=== PATIENT | female | born 1990 | race American Indian/Alaskan Native ===

== ENCOUNTER 2017-09-01 22:05 | Emergency (ER) | payer MEDICAID ==
[2017-09-01] MEDS ORDERED: NACL 0.9% 1000 ML 1,000 ML IV ONE (22:17)
[2017-09-01] MEDS ORDERED: ZOFRAN ODT PO ONE (22:20)
[2017-09-01 22:58] LABS: Basophils % (Auto) 0.6 % (0.0-1.8); Eosinophils # (Auto) 0.1 K/mm3 (0.0-0.4); Eosinophils % (Auto) 1.2 % (0.0-4.3); Hematocrit 39.9 % (30.3-42.9); Hemoglobin 13.1 gm/dl (10.1-14.3); Lymphocytes # (Auto) 1.7 K/mm3 (1.2-5.4); Lymphocytes % (Auto) 29.3 % (13.4-35.0); Mean Corpuscular HGB Conc 33 % (30-34); Mean Corpuscular Hemoglobin 30 pg (28-32); Mean Corpuscular Volume 91 fl (79-97); Monocytes # (Auto) 0.3 K/mm3 (0.0-0.8); Platelet Count 224 K/mm3 (140-440); Red Blood Count 4.41 M/mm3 (3.65-5.03); Red Cell Distribution Width 13.3 % (13.2-15.2)
[2017-09-01 23:17] LABS: Alanine Aminotransferase 11 units/L (7-56); Albumin 4.5 g/dL (3.9-5); BUN/Creatinine Ratio 15; Blood Urea Nitrogen 9 mg/dL (7-17); Calcium 9.2 mg/dL (8.4-10.2); Hemolysis Index 5; Lipase 15 units/L (13-60)
--- NOTE | 2017-09-02 01:34 | XRay Report ---
FINAL REPORT EXAM: XR TOE(S) 2+V RT HISTORY: Slipped on stairs and right big toe pain TECHNIQUE: AP view of the right foot and a lateral view of the right great toe PRIORS: None. FINDINGS: The lateral views shows a lucency in the the base of the distal phalanx of the great toe that is likely an artifactual Mach band. The bones are normally aligned and mineralized. The joint spaces are well-preserved. There is no definite acute fracture. The soft tissues are unremarkable. IMPRESSION: No evidence of acute fracture or subluxation.
[2017-09-02 01:50] VITALS: BP 125/81
[2017-09-02 01:52] LABS: Bilirubin,Urine NEG (Negative); Blood,Urine LG (Negative); Mucus,Urine 2+ /HPF; Protein,Urine <15 mg/dL mg/dL (Negative)
[2017-09-02 01:56] LABS: Color,Urine Amber (Yellow)
[2017-09-02] MEDS ORDERED: MOTRIN PO ONE (02:44)
--- NOTE | 2017-09-02 02:49 | Emergency Department Report ---
ED N/V/D HPI - General Chief complaint: Abdominal Pain Stated complaint: GOEL/NAUSEA/RT FOOT PAIN Time Seen by Provider: 09/02/17 02:21 Source: patient Mode of arrival: Ambulatory Limitations: No Limitations - History of Present Illness Initial comments: ms singh is a 27 year-old woman without PMH who presents from home with various complaints. Has felt weak, nauseated since yesterday. Today went to stand up and felt light headed. tripped on the stairs, did not fall, but struck her R foot in a painful way. has been able to walk. Presented feeling nauseated. Had fluids in triage, now feels better. Only mild abdominal pain. All over. No pain with urination. No vomiting. Mild GOEL for two days, has also resolved. Pain in her R big toe and R foot. MD complaint: nausea Location: diffuse Radiation: none Severity: mild Associated Symptoms: weakness - Related Data Previous Rx's Medication Instructions Recorded Last Taken Type traMADol [Ultram 50 MG tab] 50 mg PO Q6HR PRN #20 tablet 06/11/15 Unknown Rx Allergies Allergy/AdvReac Type Severity Reaction Status Date / Time No Known Allergies Allergy Verified 12/23/14 11:32 ED Review of Systems ROS: Stated complaint: GOEL/NAUSEA/RT FOOT PAIN Other details as noted in HPI Comment: All other systems reviewed and negative ED Past Medical Hx - Past Medical History Previous Medical History?: No Hx Hypertension: No Hx Congestive Heart Failure: No Hx Diabetes: No Hx Deep Vein Thrombosis: No Hx Renal Disease: No Hx Sickle Cell Disease: No Hx Seizures: No Hx Asthma: No Hx COPD: No Hx HIV: No - Surgical History Past Surgical History?: No - Social History Smoking Status: Never Smoker Substance Use Type: None - Medications Home Medications: Home Medications Medication Instructions Recorded Confirmed Last Taken Type traMADol [Ultram 50 MG tab] 50 mg PO Q6HR PRN #20 tablet 06/11/15 Unknown Rx ED Physical Exam - General Limitations: No Limitations General appearance: alert, in no apparent distress - Head Head exam: Present: atraumatic, normocephalic - Eye Eye exam: Present: normal appearance, PERRL, EOMI - ENT ENT exam: Present: mucous membranes moist - Neck Neck exam: Present: normal inspection. Absent: tenderness - Respiratory Respiratory exam: Present: normal lung sounds bilaterally. Absent: respiratory distress, wheezes, rales - Cardiovascular Cardiovascular Exam: Present: regular rate, normal rhythm. Absent: systolic murmur, diastolic murmur, rubs, gallop - GI/Abdominal GI/Abdominal exam: Present: soft. Absent: distended, tenderness, guarding, rebound - Rectal Rectal exam: Present: deferred - Extremities Exam Extremities exam: Present: normal inspection, other (Mild ttp R 1st MTP joint, R great toe. no bruising, no swelling. Brisk cap refill. motor and sensory intact. ) - Back Exam Back exam: Present: normal inspection - Neurological Exam Neurological exam: Present: alert, oriented X3, normal gait - Psychiatric Psychiatric exam: Present: normal affect, normal mood - Skin Skin exam: Present: warm, dry, intact, normal color. Absent: rash ED Course Vital Signs 09/01/17 09/01/17 09/02/17 22:03 22:13 01:47 Temperature 98.3 F 98.3 F 98.5 F Pulse Rate 76 89 76 Respiratory 18 18 14 Rate Blood Pressure 111/66 111/66 Blood Pressure 125/81 [Right] O2 Sat by Pulse 100 100 100 Oximetry ED Medical Decision Making - Lab Data Result diagrams: 09/01/17 22:43 09/01/17 22:43 Lab Results 09/01/17 09/01/17 09/01/17 Range/Units 22:43 22:43 22:43 WBC 5.6 (4.5-11.0) K/mm3 RBC 4.41 (3.65-5.03) M/mm3 Hgb 13.1 (10.1-14.3) gm/dl Hct 39.9 (30.3-42.9) % MCV 91 (79-97) fl MCH 30 (28-32) pg MCHC 33 (30-34) % RDW 13.3 (13.2-15.2) % Plt Count 224 (140-440) K/mm3 Lymph % (Auto) 29.3 (13.4-35.0) % [place] % (Auto) 6.0 (0.0-7.3) % Eos % (Auto) 1.2 (0.0-4.3) % Baso % (Auto) 0.6 (0.0-1.8) % Lymph # 1.7 (1.2-5.4) K/mm3 [place] # 0.3 (0.0-0.8) K/mm3 Eos # 0.1 (0.0-0.4) K/mm3 Baso # 0.0 (0.0-0.1) K/mm3 Seg Neutrophils % 62.9 (40.0-70.0) % Seg Neutrophils # 3.5 (1.8-7.7) K/mm3 Sodium 141 (137-145) mmol/L Potassium 4.0 (3.6-5.0) mmol/L Chloride 103.9 (98-107) mmol/L Carbon Dioxide 25 (22-30) mmol/L Anion Gap 16 mmol/L BUN 9 (7-17) mg/dL Creatinine 0.6 L (0.7-1.2) mg/dL Estimated GFR > 60 ml/min BUN/Creatinine Ratio 15 % Glucose 105 H (65-100) mg/dL Calcium 9.2 (8.4-10.2) mg/dL Total Bilirubin 0.40 (0.1-1.2) mg/dL AST 17 (5-40) units/L ALT 11 (7-56) units/L Alkaline Phosphatase 67 (35-129) units/L Total Protein 7.7 (6.3-8.2) g/dL Albumin 4.5 (3.9-5) g/dL Albumin/Globulin Ratio 1.4 % Lipase 15 (13-60) units/L HCG, Qual Negative (Negative) Urine Color (Yellow) Urine Turbidity (Clear) Urine pH (5.0-7.0) Ur Specific [place] (1.003-1.030) Urine Protein (Negative) mg/dL Urine Glucose (UA) (Negative) mg/dL Urine Ketones (Negative) mg/dL Urine Blood (Negative) Urine Nitrite (Negative) Urine Bilirubin (Negative) Urine Urobilinogen (<2.0) mg/dL Ur Leukocyte Esterase (Negative) Urine WBC (Auto) (0.0-6.0) /HPF Urine RBC (Auto) (0.0-6.0) /HPF U Epithel Cells (Auto) (0-13.0) /HPF Urine Mucus /HPF 09/02/17 Range/Units 01:28 WBC (4.5-11.0) K/mm3 RBC (3.65-5.03) M/mm3 Hgb (10.1-14.3) gm/dl Hct (30.3-42.9) % MCV (79-97) fl MCH (28-32) pg MCHC (30-34) % RDW (13.2-15.2) % Plt Count (140-440) K/mm3 Lymph % (Auto) (13.4-35.0) % [place] % (Auto) (0.0-7.3) % Eos % (Auto) (0.0-4.3) % Baso % (Auto) (0.0-1.8) % Lymph # (1.2-5.4) K/mm3 [place] # (0.0-0.8) K/mm3 Eos # (0.0-0.4) K/mm3 Baso # (0.0-0.1) K/mm3 Seg Neutrophils % (40.0-70.0) % Seg Neutrophils # (1.8-7.7) K/mm3 Sodium (137-145) mmol/L Potassium (3.6-5.0) mmol/L Chloride (98-107) mmol/L Carbon Dioxide (22-30) mmol/L Anion Gap mmol/L BUN (7-17) mg/dL Creatinine (0.7-1.2) mg/dL Estimated GFR ml/min BUN/Creatinine Ratio % Glucose (65-100) mg/dL Calcium (8.4-10.2) mg/dL Total Bilirubin (0.1-1.2) mg/dL AST (5-40) units/L ALT (7-56) units/L Alkaline Phosphatase (35-129) units/L Total Protein (6.3-8.2) g/dL Albumin (3.9-5) g/dL Albumin/Globulin Ratio % Lipase (13-60) units/L HCG, Qual (Negative) Urine Color [place] (Yellow) Urine Turbidity Clear (Clear) Urine pH 6.0 (5.0-7.0) Ur Specific [place] 1.024 (1.003-1.030) Urine Protein <15 mg/dl (Negative) mg/dL Urine Glucose (UA) Neg (Negative) mg/dL Urine Ketones 20 (Negative) mg/dL Urine Blood Lg (Negative) Urine Nitrite Neg (Negative) Urine Bilirubin Neg (Negative) Urine Urobilinogen 2.0 (<2.0) mg/dL Ur Leukocyte Esterase Tr (Negative) Urine WBC (Auto) 3.0 (0.0-6.0) /HPF Urine RBC (Auto) 4.0 (0.0-6.0) /HPF U Epithel Cells (Auto) 4.0 (0-13.0) /HPF Urine Mucus 2+ /HPF - EKG Data 2236; HR 65, sinus, normal axis, intervals wnl, no ST changes concerning for acute ischemia. - Radiology Data Radiology results: report reviewed - Medical Decision Making ms Singh is a 27 year-old woman who presents with various complaints. Nausea, GOEL have resolved after fluids. is taking PO. VSS. Exam unremarkable, mild R foot ttp, no evidence of trauma on exam. Labs wnl. XR negative. Ambulatory. Giving ibuprofen. No evidence of dehydration. Normal WBC and Hgb. UA clean, blod due to current menses. EKG NSR without evidence of ischemia. Given care instructions, return precautions. safe for dc to home Critical care attestation.: If time is entered above; I have spent that time in minutes in the direct care of this critically ill patient, excluding procedure time. ED Disposition Clinical Impression: Nausea Headache Qualifiers: Headache type: unspecified Headache chronicity pattern: unspecified pattern Intractability: not intractable Qualified Code(s): R51 - Headache Toe injury Qualifiers: Encounter type: initial encounter Laterality: right Qualified Code(s): S99.921A - Unspecified injury of right foot, initial encounter Disposition: DC-01 TO HOME OR SELFCARE Is pt being admited?: No Condition: Stable Instructions: Abdominal Pain (ED), Foot Contusion (ED), Acute Nausea and Vomiting (ED) Referrals: PRIMARY CARE, [Primary Care Provider] - 3-5 Days
== END 2017-09-02 03:19 | disposition home or self-care (01) ==
LOC: ED 22:05
DX: S99.921A Unspecified injury of right foot, initial encounter (principal); R51 Headache; X58.XXXA Exposure to other specified factors, initial encounter; Y93.89 Activity, other specified; Y92.89 Other specified places as the place of occurrence of the external cause; Y99.8 Other external cause status
CPT/HCPCS: 36415; 73660; 80053; 81001; 83690; 84703; 85025; 93005; 93010; 96360; 96361; 99284; J7030; Q0162

== ENCOUNTER 2017-10-15 10:48 | Emergency (ER) | payer MEDICAID ==
[2017-10-15 11:09] VITALS: BP 117/78
[2017-10-15] MEDS ORDERED: NACL 0.9% 1000 ML 1,000 ML IV ONE (11:57)
[2017-10-15] MEDS ORDERED: ZOFRAN IV ONE (11:57)
[2017-10-15 12:06] LABS: Basophils % (Auto) 0.4 % (0.0-1.8); Eosinophils % (Auto) 0.4 % (0.0-4.3); Hematocrit 39.2 % (30.3-42.9); Hemoglobin 13.3 gm/dl (10.1-14.3); Lymphocytes # (Auto) 1.1 K/mm3 (1.2-5.4); Lymphocytes % (Auto) 14.1 % (13.4-35.0); Mean Corpuscular HGB Conc 34 % (30-34); Mean Corpuscular Hemoglobin 30 pg (28-32); Mean Corpuscular Volume 89 fl (79-97); Monocytes # (Auto) 0.4 K/mm3 (0.0-0.8); Monocytes % (Auto) 4.6 % (0.0-7.3); Platelet Count 237 K/mm3 (140-440); Red Cell Distribution Width 12.7 % (13.2-15.2)
--- NOTE | 2017-10-15 12:07 | Emergency Department Report ---
ED HPI - General Chief complaint: Nausea/Vomiting/Diarrhea Stated complaint: /VOMIT Time Seen by Provider: 10/15/17 11:28 Source: patient Mode of arrival: Ambulatory Limitations: No Limitations - History of Present Illness Initial comments: This is a 27-year-old female nontoxic, well nourished in appearance, no acute signs of distress presents to the ED with c/o of nausea, vomiting, and left pelvic pain x1 day. Patient denies upper abdominal pain, vaginal bleeding, or back pain. Patient denies any vaginal discharge or foul odor. Patient denies any chest pain, shortness of breathe, fever, chills, headache, stiff neck , numbness, tingling. Patient denies any urinary symptoms. Patient denies any allergies or PMH. MD Complaint: abdominal pain (pelvic pain), other (nausea/vomiting) -: days(s) (1) Location: pelvis Radiation: none Severity: mild Severity scale (0 -10): 3 Quality: cramping, aching Consistency: intermittent Improves with: none Worsens with: none Associated symptoms: denies: nausea/vomiting, vaginal bleeding, vaginal discharge, abdominal pain, dysuria, headache, vision changes, malaise, dysparuenia, rash, seizure, shortness of breath, syncope, weakness Vaginal bleeding: none Pre-yahir care: none - Related Data Previous Rx's Medication Instructions Recorded Last Taken Type traMADol [Ultram 50 MG tab] 50 mg PO Q6HR PRN #20 tablet 06/11/15 Unknown Rx Acetaminophen 500 mg PO Q8H PRN #30 tablet 10/15/17 Unknown Rx Metoclopramide [Reglan] 10 mg PO TID PRN #60 tab 10/15/17 Unknown Rx 21/Iron Fu/Folic Acid 1 each PO DAILY #30 tablet 10/15/17 Unknown Rx [ Complete Caplet] Allergies Allergy/AdvReac Type Severity Reaction Status Date / Time No Known Allergies Allergy Verified 10/15/17 11:06 ED Review of Systems ROS: Stated complaint: /VOMIT Other details as noted in HPI Constitutional: denies: chills, fever Eyes: denies: eye pain, eye discharge, vision change ENT: denies: ear pain, throat pain Respiratory: denies: cough, shortness of breath, wheezing Cardiovascular: denies: chest pain, palpitations Endocrine: no symptoms reported Gastrointestinal: abdominal pain (pelvic left), nausea, vomiting. denies: diarrhea, constipation, hematemesis Genitourinary: denies: urgency, dysuria, discharge Musculoskeletal: denies: back pain, joint swelling, arthralgia Skin: denies: rash, lesions Neurological: denies: headache, weakness, paresthesias Psychiatric: denies: anxiety, depression Hematological/Lymphatic: denies: easy bleeding, easy bruising ED Past Medical Hx - Past Medical History Hx Hypertension: No Hx Congestive Heart Failure: No Hx Diabetes: No Hx Deep Vein Thrombosis: No Hx Renal Disease: No Hx Sickle Cell Disease: No Hx Seizures: No Hx Asthma: No Hx COPD: No Hx HIV: No - Social History Smoking Status: Never Smoker Substance Use Type: None - Medications Home Medications: Home Medications Medication Instructions Recorded Confirmed Last Taken Type traMADol [Ultram 50 MG tab] 50 mg PO Q6HR PRN #20 tablet 06/11/15 Unknown Rx Acetaminophen 500 mg PO Q8H PRN #30 tablet 10/15/17 Unknown Rx Metoclopramide [Reglan] 10 mg PO TID PRN #60 tab 10/15/17 Unknown Rx 21/Iron Fu/Folic Acid 1 each PO DAILY #30 tablet 10/15/17 Unknown Rx [ Complete Caplet] ED Physical Exam - General Limitations: No Limitations General appearance: alert, in no apparent distress - Head Head exam: Present: atraumatic, normocephalic - Eye Eye exam: Present: normal appearance Pupils: Present: normal accommodation - ENT ENT exam: Present: normal exam, mucous membranes moist - Neck Neck exam: Present: normal inspection, full ROM. Absent: tenderness, meningismus, lymphadenopathy - Respiratory Respiratory exam: Present: normal lung sounds bilaterally. Absent: respiratory distress, wheezes, rales, rhonchi, stridor, chest wall tenderness, accessory muscle use, decreased breath sounds, prolonged expiratory - Cardiovascular Cardiovascular Exam: Present: regular rate, normal rhythm, normal heart sounds. Absent: bradycardia, tachycardia, irregular rhythm, systolic murmur, diastolic murmur, rubs, gallop - GI/Abdominal GI/Abdominal exam: Present: soft, tenderness (left pelvic area), normal bowel sounds. Absent: distended, guarding, rebound, rigid, diminished bowel sounds - Expanded GI/Abdominal Exam Expanded GI/Abdominal exam: Absent: psoas sign, obturator sign, heel tap sign, Lutz's sign, Rovsing's sign, tenderness at [place]'s Point, ascites - Rectal Rectal exam: Present: deferred - Extremities Exam Extremities exam: Present: normal inspection, full ROM, normal capillary refill. Absent: tenderness - Back Exam Back exam: Present: normal inspection, full ROM. Absent: tenderness, CVA tenderness (R), CVA tenderness (L), muscle spasm, paraspinal tenderness, vertebral tenderness, rash noted - Neurological Exam Neurological exam: Present: alert, oriented X3, normal gait - Psychiatric Psychiatric exam: Present: normal affect, normal mood - Skin Skin exam: Present: warm, dry, intact, normal color. Absent: rash ED Course Vital Signs 10/15/17 10/15/17 11:06 12:06 Temperature 98.4 F Pulse Rate 88 Respiratory 16 16 Rate Blood Pressure 117/78 O2 Sat by Pulse 98 Oximetry - Reevaluation(s) Reevaluation #1: 10/15/17 12:09 Patient is speaking in full sentences with no signs of distress noted. ED Medical Decision Making - Lab Data Result diagrams: 10/15/17 11:41 10/15/17 11:41 - Medical Decision Making This is a 27-year-old female presents with hyperemesis and pelvic pain. Patient is stable and was examined by me. Normal abdominal exam. US OB obtained and dictated by the radiologist with single normal IUP 6 weeks. Ua obtained. Quantative serum test obtained. Patient notified of the US report with no questions noted by the patient. No vaginal bleeding. Labs within normal limits. Patient received 1 L normal saline and Zofran which pateint stated feels much better. A by mouth challenge has been obtained and patient tolerated well with no nausea vomiting. Patient discharged with , Tylenol and Reglan. Patient was referred to Follow-up with a CLINICAL RESEARCH SPECIALIST in 3-5 days or if symptoms worsen and continue return to emergency room as soon as possible. At time of discharge, the patient does not seem toxic or ill in appearance. No acute signs of distress noted. Patient agrees to discharge treatment plan of care. No further questions noted by the patient. Critical care attestation.: If time is entered above; I have spent that time in minutes in the direct care of this critically ill patient, excluding procedure time. ED Disposition Clinical Impression: Hyperemesis gravidarum, Pelvic pain affecting in first trimester, antepartum Disposition: - TO HOME OR SELFCARE Is pt being admited?: No Does the pt Need Aspirin: No Condition: Stable Instructions: Hyperemesis Gravidarum (ED), (ED) Additional Instructions: Follow-up with a CLINICAL RESEARCH SPECIALIST doctor in 3-5 days or if symptoms worsen and continue return to emergency room as soon as possible. Prescriptions: Acetaminophen 500 mg PO Q8H PRN #30 tablet PRN Reason: Pain, Moderate (4-6) Metoclopramide [Reglan] 10 mg PO TID PRN #60 tab PRN Reason: Nausea 21/Iron Fu/Folic Acid [ Complete Caplet] 1 each PO DAILY #30 tablet Referrals: PRIMARY CARE, [Primary Care Provider] - 3-5 Days ANALISA GUERRA MD [Staff Physician] - 3-5 Days [facility] [Provider Group] - 3-5 Days [facility] [Outside] - 3-5 Days Forms: Work/School Release Form(ED)
[2017-10-15 12:11] LABS: BUN/Creatinine Ratio 14; Blood Urea Nitrogen 7 mg/dL (7-17); Calcium 9.3 mg/dL (8.4-10.2); Hemolysis Index 6
[2017-10-15 12:16] LABS: Bilirubin,Urine NEG (Negative); Blood,Urine NEG (Negative); Color,Urine Yellow (Yellow); Mucus,Urine 3+ /HPF; Urobilinogen,Urine < 2.0 mg/dL (<2.0)
[2017-10-15] MEDS ORDERED: TYLENOL PO ONE (12:55)
--- NOTE | 2017-10-15 13:51 | Ultrasound Report ---
ULTRASOUND PELVIC COMPLETE ULTRASOUND TRANSVAGINAL HISTORY: Abdominal pain during . COMPARISON: None. TECHNIQUE: Transabdominal and transvaginal ultrasound with color doppler interrogation. FINDINGS: Uterus: The uterus measures 9.2 x 5.3 x 6.5 cm. No evidence for uterine mass. Normal cervix. Endometrium: An intrauterine is identified with heart rate measuring 114 beats per minute. [place]-rump length measures 4 mm which correlates with a 6 week, 0 day . Estimated due date is 06/10/18. A moderate subchorionic hemorrhage is identified along the anterior border of the gestational sac measuring 1.3 x 0.5 x 2.7 cm. Right ovary: 3.3 x 1.8 x 4.1 cm. There is a complex area in the right ovary measuring up to 2.9 cm which probably represents a corpus luteum cyst. Left ovary: 2.5 x 1.3 x 1.9 cm. No focal abnormality. No pelvic fluid or mass is identified. Normal color doppler interrogation. IMPRESSION: Viable, single intrauterine as described. Subchorionic hemorrhage.
== END 2017-10-15 14:56 | disposition home or self-care (01) ==
LOC: ED 10:48
DX: O21.0 Mild hyperemesis gravidarum (principal); Z3A.01 Less than 8 weeks gestation of pregnancy
CPT/HCPCS: 36415; 76801; 76817; 80048; 81001; 84702; 85025; 96361; 96374; 99284; J2405; J7030

== ENCOUNTER 2017-10-16 20:52 | Emergency (ER) | payer MEDICAID ==
[2017-10-16 21:42] LABS: Hematocrit 39.4 % (30.3-42.9); Hemoglobin 14.1 gm/dl (10.1-14.3); Mean Corpuscular HGB Conc 36 % (30-34); Mean Corpuscular Hemoglobin 31 pg (28-32); Mean Corpuscular Volume 88 fl (79-97); Platelet Count 262 K/mm3 (140-440); Red Blood Count 4.48 M/mm3 (3.65-5.03); Red Cell Distribution Width 12.8 % (13.2-15.2)
[2017-10-16 21:53] LABS: BUN/Creatinine Ratio 17; Blood Urea Nitrogen 10 mg/dL (7-17); Calcium 10.1 mg/dL (8.4-10.2); Hemolysis Index 0
[2017-10-16] MEDS ORDERED: PHENERGAN PR ONE ×2 (22:54→23:04)
[2017-10-16 23:06] VITALS: BP 132/78
== END 2017-10-16 23:47 | disposition left against medical advice (07) ==
LOC: ED 20:52
DX: R11.2 Nausea with vomiting, unspecified (principal); Z53.21 Procedure and treatment not carried out due to patient leaving prior to being seen by health care provider
CPT/HCPCS: 36415; 80048; 85027

== ENCOUNTER 2018-03-15 11:22 | Emergency (ER) | payer MEDICAID, OTHER ==
[2018-03-15] MEDS ORDERED: ZOFRAN IV ONE (14:02)
[2018-03-15] MEDS ORDERED: NACL 0.9% 1000 ML 1,000 ML IV ONE ×2 (14:02→14:03)
--- NOTE | 2018-03-15 14:06 | Emergency Department Report ---
ED N/V/D HPI - General Chief complaint: Nausea/Vomiting/Diarrhea Stated complaint: ABD PAIN/VAGINAL PAIN Time Seen by Provider: 03/15/18 13:52 Source: patient Mode of arrival: Ambulatory Limitations: No Limitations - History of Present Illness Initial comments: Ms. Singh is a 27-year-old female who presents with nausea and vomiting for the past 3 days. She was told that she has a high risk due to a subchorionic bleed. However she did have a confirmed IUP on recent follow-up with MEDICAL PRACTICE ADMINISTRATOR with cardiac activity. On previous ED visit 6 days ago she was told that she was at risk for ectopic without confirmed IUP. She denies any abdominal pain. Denies any fever. She has not been able to eat or drink for the past 3 days. She continues to vomit and spit up stomach contents. History of 2 normal births and 2 abortions. EGA 6 weeks 5 days according to the EVONNE 11 03 2018 complaint: nausea, vomiting -: Gradual, days(s) (3) Description of Vomiting: bilious Associated Abdominal Pain: No Severity: moderate Worsens with: eating Context: other () - Related Data Previous Rx's Medication Instructions Recorded Last Taken Type traMADol [Ultram 50 MG tab] 50 mg PO Q6HR PRN #20 tablet 06/11/15 Unknown Rx Acetaminophen 500 mg PO Q8H PRN #30 tablet 10/15/17 Unknown Rx Metoclopramide [Reglan] 10 mg PO TID PRN #60 tab 10/15/17 Unknown Rx 21/Iron Fu/Folic Acid 1 each PO DAILY #30 tablet 10/15/17 Unknown Rx [ Complete Caplet] Ondansetron [Zofran Odt] 4 mg PO Q8HR PRN #9 tab.rapdis 03/15/18 Unknown Rx Promethazine [Phenergan TAB] 25 mg PO Q6HR PRN #20 tab 03/15/18 Unknown Rx Allergies Allergy/AdvReac Type Severity Reaction Status Date / Time No Known Allergies Allergy Verified 03/15/18 11:24 ED Review of Systems ROS: Stated complaint: ABD PAIN/VAGINAL PAIN Other details as noted in HPI Comment: All other systems reviewed and negative Constitutional: malaise. denies: chills, fever Respiratory: denies: cough ED Past Medical Hx - Past Medical History Previous Medical History?: No Hx Hypertension: No Hx Congestive Heart Failure: No Hx Diabetes: No Hx Deep Vein Thrombosis: No Hx Renal Disease: No Hx Sickle Cell Disease: No Hx Seizures: No Hx Asthma: No Hx COPD: No Hx HIV: No Additional medical history: Vaginal delivery x 2 - Surgical History Past Surgical History?: No - Social History Smoking Status: Never Smoker Substance Use Type: None - Medications Home Medications: Home Medications Medication Instructions Recorded Confirmed Last Taken Type traMADol [Ultram 50 MG tab] 50 mg PO Q6HR PRN #20 tablet 06/11/15 Unknown Rx Acetaminophen 500 mg PO Q8H PRN #30 tablet 10/15/17 Unknown Rx Metoclopramide [Reglan] 10 mg PO TID PRN #60 tab 10/15/17 Unknown Rx 21/Iron Fu/Folic Acid 1 each PO DAILY #30 tablet 10/15/17 Unknown Rx [ Complete Caplet] Ondansetron [Zofran Odt] 4 mg PO Q8HR PRN #9 tab.rapdis 03/15/18 Unknown Rx Promethazine [Phenergan TAB] 25 mg PO Q6HR PRN #20 tab 03/15/18 Unknown Rx ED Physical Exam - General Limitations: No Limitations General appearance: alert, in no apparent distress, other (constantly spitting into an emesis bag, bilious watery emesis present) - Head Head exam: Present: atraumatic, normocephalic - Eye Eye exam: Present: normal appearance - ENT ENT exam: Present: mucous membranes moist - Neck Neck exam: Present: normal inspection. Absent: tenderness, meningismus - Respiratory Respiratory exam: Present: normal lung sounds bilaterally. Absent: respiratory distress, wheezes, rales, rhonchi - Cardiovascular Cardiovascular Exam: Present: regular rate, normal rhythm, normal heart sounds. Absent: systolic murmur, diastolic murmur, rubs, gallop - GI/Abdominal GI/Abdominal exam: Present: soft, normal bowel sounds. Absent: distended, tenderness, guarding, rebound - Extremities Exam Extremities exam: Present: normal inspection - Back Exam Back exam: Present: normal inspection - Neurological Exam Neurological exam: Present: alert, oriented X3 - Psychiatric Psychiatric exam: Present: normal affect, normal mood - Skin Skin exam: Present: warm, dry, intact, normal color. Absent: rash ED Course Vital Signs 03/15/18 11:25 Temperature 98 F Pulse Rate 88 Respiratory 18 Rate Blood Pressure 133/79 O2 Sat by Pulse 99 Oximetry ED Medical Decision Making - Lab Data Result diagrams: 03/15/18 14:27 03/15/18 14:27 - Radiology Data Radiology results: image reviewed pole positive cardiac activity positive IUP - Medical Decision Making Hyperemesis gravidarum I reviewed ultrasound radiology report from September 06. Differential diagnosis includes failed with hemorrhagic corpus luteum cyst versus right sided ectopic Ultrasound obtained today confirmed IUP with cardiac activity which corresponds to dates. Patient received IV fluid and Zofran prescribed Zofran ODT and promethazine Critical care attestation.: If time is entered above; I have spent that time in minutes in the direct care of this critically ill patient, excluding procedure time. ED Disposition Clinical Impression: Hyperemesis gravidarum Disposition: DC-01 TO HOME OR SELFCARE Is pt being admited?: No Does the pt Need Aspirin: No Condition: Stable Instructions: Hyperemesis Gravidarum (ED) Prescriptions: Ondansetron [Zofran Odt] 4 mg PO Q8HR PRN #9 tab.rapdis PRN Reason: Nausea Promethazine [Phenergan TAB] 25 mg PO Q6HR PRN #20 tab PRN Reason: Nausea Referrals: PRIMARY CARE, [Primary Care Provider] - 3-5 Days
[2018-03-15 15:04] LABS: Hematocrit 42.6 % (30.3-42.9); Hemoglobin 14.2 gm/dl (10.1-14.3); Mean Corpuscular HGB Conc 33 % (30-34); Mean Corpuscular Volume 88 fl (79-97); Platelet Count 309 K/mm3 (140-440); Red Blood Count 4.84 M/mm3 (3.65-5.03); Red Cell Distribution Width 12.4 % (13.2-15.2)
[2018-03-15 15:17] LABS: BUN/Creatinine Ratio 17; Blood Urea Nitrogen 10 mg/dL (7-17); Calcium 9.4 mg/dL (8.4-10.2); Hemolysis Index 5
[2018-03-15 16:55] LABS: Basophils % (Manual) 0 % (0.0-1.8); Eosinophils % (Manual) 0 % (0.0-4.3); Total Cells Counted 100
[2018-03-15 16:56] LABS: Platelet Estimate Consistent w Auto; RBC Morphology Normal
[2018-03-15 17:39] VITALS: BP 102/64
--- NOTE | 2018-03-15 19:13 | Ultrasound Report ---
FINAL REPORT PROCEDURE: Obstetrical ultrasound. TECHNIQUE: Real-time transabdominal sonography of the uterus, placenta, amniotic fluid, adnexa, and fetus was performed with image documentation. Measurements were obtained to determine age/size. M-mode Doppler was used to document heartbeat. CPT 43092 HISTORY: Possible abnormal . COMPARISON: Obstetrical ultrasound 03/09/2018. FINDINGS: The uterus measures 11.2 centimeters x 6.5 centimeters x 8.1 centimeters. The myometrium appears unif orm. There is an intrauterine gestational sac. This should be better evaluated by transvaginal scanni ng. There may be a small fluid collection adjacent to this sac. There is a cyst in the right ovary wi th a maximum dimension of 2.7 centimeters. The left ovary is not identified. IMPRESSION: Limited study. Intrauterine gestational sac.
--- NOTE | 2018-03-15 19:16 | Ultrasound Report ---
FINAL REPORT PROCEDURE: Transvaginal obstetrical ultrasound. TECHNIQUE: Real-time transvaginal sonography of the uterus, placenta, amniotic fluid, adnexa, and fe tus was performed with image documentation. Measurements were obtained to determine age/size. M -mode Doppler was used to document heartbeat. CPT 84947 HISTORY: Possible abnormal . COMPARISON: Obstetrical ultrasound 03/09/2018. FINDINGS: The myometrium has uniform echogenicity. There are no focal uterine masses. There is an intrauterine gestational sac. A yolk sac and pole are visible. Cardiac activity is documented at 118 beats p er minute. The crown-rump length measurement is 5.6 millimeters. This indicates a menstrual age of 6 weeks 2 days. The estimated date of confinement is 11/06/2018. There is a small fluid collection micheal cent to the gestational sac. This contains low-level internal echoes. It is consistent with a subchor ionic hemorrhage. Both ovaries appear normal in size. There is a complex cyst in the right ovary. Thi s measures 2.7 centimeters maximum dimension. IMPRESSION: Viable intrauterine with a menstrual age of 6 weeks 2 days. Subchorionic hemorrhage. Comple x right ovarian cyst.
== END 2018-03-15 17:37 | disposition home or self-care (01) ==
LOC: ED 11:22
DX: O21.0 Mild hyperemesis gravidarum (principal); Z3A.01 Less than 8 weeks gestation of pregnancy
CPT/HCPCS: 36415; 76801; 76817; 80048; 84702; 85007; 85025; 96361; 96374; 99284; J2405; J7030

== ENCOUNTER 2018-03-20 18:29 | Emergency (ER) | payer MEDICAID, OTHER ==
[2018-03-20] MEDS ORDERED: NACL 0.9% 1000 ML 1,000 ML IV ONE ×2 (19:33→21:00)
[2018-03-20] MEDS ORDERED: ZOFRAN ONE (19:39)
[2018-03-20] MEDS ORDERED: ZOFRAN IV ONE (19:47)
[2018-03-20 19:59] LABS: Basophils # (Auto) 0.1 K/mm3 (0.0-0.1); Basophils % (Auto) 0.6 % (0.0-1.8); Eosinophils % (Auto) 0.1 % (0.0-4.3); Hematocrit 48.4 % (30.3-42.9); Hemoglobin 16.1 gm/dl (10.1-14.3); Lymphocytes # (Auto) 1.9 K/mm3 (1.2-5.4); Lymphocytes % (Auto) 17.5 % (13.4-35.0); Mean Corpuscular HGB Conc 33 % (30-34); Mean Corpuscular Volume 89 fl (79-97); Monocytes # (Auto) 0.6 K/mm3 (0.0-0.8); Monocytes % (Auto) 5.9 % (0.0-7.3); Platelet Count 330 K/mm3 (140-440); Red Blood Count 5.43 M/mm3 (3.65-5.03); Red Cell Distribution Width 12.3 % (13.2-15.2)
[2018-03-20 20:14] LABS: Alanine Aminotransferase 18 units/L (7-56); Albumin 5.4 g/dL (3.9-5); BUN/Creatinine Ratio 19; Blood Urea Nitrogen 13 mg/dL (7-17); Calcium 10.6 mg/dL (8.4-10.2); Hemolysis Index 22
[2018-03-20] MEDS ORDERED: BENADRYL IV ONE (21:00)
[2018-03-20] MEDS ORDERED: REGLAN IV ONE (21:00)
--- NOTE | 2018-03-20 21:18 | Emergency Department Report ---
ED N/V/D HPI - General Chief complaint: Nausea/Vomiting/Diarrhea Stated complaint: /STOMACH PAIN Time Seen by Provider: 03/20/18 20:59 Source: patient Mode of arrival: Ambulatory Limitations: No Limitations - History of Present Illness Initial comments: Patient is a 27-year-old [place]ian female A0 , 7 weeks followed by ORAL SURGERY PHYSICIAN Dr. Marshall presents for nausea and vomiting 3 days patient denies fever or chills complains of abdominal cramping 09/11 there is no vaginal bleeding pelvic pain does endorse vaginal discharge white thick malodorours. N no dysuria frequency or urgency patient denies concern for STI. Patient states not currently taking anti-emetics or nausea and vomiting thyroid nausea vomiting is common in her first trimester last by mouth intake was yesterday as nausea and vomiting was 15 minutes ago. MD complaint: nausea, vomiting (OS well) Onset/Timin -: days(s) Description of Vomiting: food contents, watery Associated Abdominal Pain: Yes (cramping ) Location: LLQ, RLQ Radiation: none Severity: moderate Pain Scale: 5 Quality: cramping Consistency: intermittent Improves with: none Worsens with: eating Context: other ( 1st trimester ) Associated Symptoms: nausea/vomiting - Related Data Previous Rx's Medication Instructions Recorded Last Taken Type traMADol [Ultram 50 MG tab] 50 mg PO Q6HR PRN #20 tablet 06/11/15 Unknown Rx Acetaminophen 500 mg PO Q8H PRN #30 tablet 10/15/17 Unknown Rx Metoclopramide [Reglan] 10 mg PO TID PRN #60 tab 10/15/17 Unknown Rx 21/Iron Fu/Folic Acid 1 each PO DAILY #30 tablet 10/15/17 Unknown Rx [ Complete Caplet] Ondansetron [Zofran Odt] 4 mg PO Q8HR PRN #9 tab.rapdis 03/15/18 Unknown Rx Promethazine [Phenergan TAB] 25 mg PO Q6HR PRN #20 tab 03/15/18 Unknown Rx metroNIDAZOLE 0.75% [Vandazole 1 applicator VG QHS 10 Days #1 tube 03/20/18 Unknown Rx 0.75% VAGINAL] Acetaminophen [Tylenol] 650 mg PO TID PRN #30 capsule 03/21/18 Unknown Rx Metoclopramide [Reglan] 10 mg PO TID PRN #30 tab 03/21/18 Unknown Rx diphenhydrAMINE [Benadryl CAP] 25 mg PO Q8HR PRN #30 capsule 03/21/18 Unknown Rx Allergies Allergy/AdvReac Type Severity Reaction Status Date / Time No Known Allergies Allergy Verified 03/15/18 11:24 ED Review of Systems ROS: Stated complaint: /STOMACH PAIN Other details as noted in HPI Constitutional: denies: chills, fever Eyes: denies: eye pain, eye discharge, vision change ENT: denies: ear pain, throat pain Respiratory: denies: cough, shortness of breath, wheezing Cardiovascular: denies: chest pain, palpitations Endocrine: no symptoms reported Gastrointestinal: abdominal pain, nausea, vomiting. denies: diarrhea, constipation Genitourinary: discharge. denies: urgency, dysuria, frequency, hematuria, abnormal menses, dyspareunia Musculoskeletal: denies: back pain, joint swelling, arthralgia Skin: denies: rash, lesions Neurological: denies: headache, weakness, paresthesias Psychiatric: denies: anxiety, depression Hematological/Lymphatic: denies: easy bleeding, easy bruising ED Past Medical Hx - Past Medical History Hx Hypertension: No Hx Congestive Heart Failure: No Hx Diabetes: No Hx Deep Vein Thrombosis: No Hx Renal Disease: No Hx Sickle Cell Disease: No Hx Seizures: No Hx Asthma: No Hx COPD: No Hx HIV: No Additional medical history: Vaginal delivery x 2 - Social History Smoking Status: Never Smoker Substance Use Type: None - Medications Home Medications: Home Medications Medication Instructions Recorded Confirmed Last Taken Type traMADol [Ultram 50 MG tab] 50 mg PO Q6HR PRN #20 tablet 06/11/15 Unknown Rx Acetaminophen 500 mg PO Q8H PRN #30 tablet 10/15/17 Unknown Rx Metoclopramide [Reglan] 10 mg PO TID PRN #60 tab 10/15/17 Unknown Rx 21/Iron Fu/Folic Acid 1 each PO DAILY #30 tablet 10/15/17 Unknown Rx [ Complete Caplet] Ondansetron [Zofran Odt] 4 mg PO Q8HR PRN #9 tab.rapdis 03/15/18 Unknown Rx Promethazine [Phenergan TAB] 25 mg PO Q6HR PRN #20 tab 03/15/18 Unknown Rx metroNIDAZOLE 0.75% [Vandazole 1 applicator VG QHS 10 Days #1 tube 03/20/18 Unknown Rx 0.75% VAGINAL] Acetaminophen [Tylenol] 650 mg PO TID PRN #30 capsule 03/21/18 Unknown Rx Metoclopramide [Reglan] 10 mg PO TID PRN #30 tab 03/21/18 Unknown Rx diphenhydrAMINE [Benadryl CAP] 25 mg PO Q8HR PRN #30 capsule 03/21/18 Unknown Rx ED Physical Exam - General Limitations: No Limitations General appearance: alert, in no apparent distress - Head Head exam: Present: atraumatic, normocephalic - Eye Eye exam: Present: normal appearance - ENT ENT exam: Present: mucous membranes moist - Neck Neck exam: Present: normal inspection - Respiratory Respiratory exam: Present: normal lung sounds bilaterally. Absent: respiratory distress, wheezes, stridor, chest wall tenderness - Cardiovascular Cardiovascular Exam: Present: normal rhythm, tachycardia, normal heart sounds. Absent: systolic murmur, diastolic murmur, rubs, gallop - GI/Abdominal GI/Abdominal exam: Present: soft, normal bowel sounds. Absent: distended, tenderness, rebound, bruit, hernia - Rectal Rectal exam: Present: deferred - External exam: Present: normal external exam Speculum exam: Present: erythema, vaginal discharge (green yellow malodorus). Absent: cervical discharge, vaginal bleeding, foreign body, tissue, laceration Bi-manual exam: Absent: cervical motion tendernes - Extremities Exam Extremities exam: Present: normal inspection, full ROM, normal capillary refill. Absent: tenderness, pedal edema, joint swelling, calf tenderness - Back Exam Back exam: Present: normal inspection, full ROM. Absent: tenderness, CVA tenderness (R), CVA tenderness (L), muscle spasm, rash noted - Neurological Exam Neurological exam: Present: alert, oriented X3, CN II-XII intact, normal gait - Psychiatric Psychiatric exam: Present: normal affect, normal mood - Skin Skin exam: Present: warm, dry, intact, normal color. Absent: rash ED Course Vital Signs 03/20/18 19:29 Temperature 98.1 F Pulse Rate 127 H Respiratory 14 Rate Blood Pressure 109/77 O2 Sat by Pulse 100 Oximetry ED Medical Decision Making - Lab Data Result diagrams: 03/20/18 18:45 03/20/18 18:45 Labs 03/20/18 03/20/18 03/20/18 18:45 18:45 18:45 WBC 10.9 RBC 5.43 H Hgb 16.1 H Hct 48.4 H MCV 89 MCH 30 MCHC 33 RDW 12.3 L Plt Count 330 Lymph % (Auto) 17.5 Bradley % (Auto) 5.9 Eos % (Auto) 0.1 Baso % (Auto) 0.6 Lymph # 1.9 Bradley # 0.6 Eos # 0.0 Baso # 0.1 Seg Neutrophils % 75.9 H Seg Neutrophils # 8.3 H Sodium 131 L Potassium 3.2 L Chloride 88.3 L Carbon Dioxide 25 Anion Gap 21 BUN 13 Creatinine 0.7 Estimated GFR > 60 BUN/Creatinine Ratio 19 Glucose 111 H Calcium 10.6 H Total Bilirubin 0.90 AST 18 ALT 18 Alkaline Phosphatase 85 Total Protein 8.9 H Albumin 5.4 H Albumin/Globulin Ratio 1.5 Lipase 12 L HCG, Quant 76365 H - Radiology Data Radiology results: report reviewed, image reviewed Findings [address] [address] Ultrasound Report Signed Patient: JADEN CUNNINGHAM MR#: [id number] : 1990 Acct:[id number] Age/Sex: 27 / F ADM Date: 03/20/18 Loc: ED Attending Dr: Ordering Physician: TYLER ROSALES NP Date of Service: 03/20/18 Procedure(s): US OB transvaginal Accession Number(s): [id number] cc: TYLER ROSALES NP FINAL REPORT PROCEDURE: US OB TRANSVAGINAL TECHNIQUE: Real-time transvaginal sonography of the uterus, placenta, amniotic fluid, adnexa, and fetus was performed with image documentation. Measurements were obtained to determine age/size. M-mode Doppler was used to document heartbeat. CPT 43902 HISTORY: abd pain COMPARISON: No prior studies are available for comparison. FINDINGS: There is a single intrauterine gestation sac with a CR L measurement of 12.5 millimeters corresponding to a gestational age of 7 weeks and 3 days. Expected date of conception 11/03/2018. Subchorionic fluid collection is again identified measuring 2.5 x 2.5 x 0.9 centimeters. heart rate is 142 beats per Min. Expected date of conception 11/03/2018. Right ovary measures 3.5 x 2.8 x 2.6 and left ovary measures 2.2 x 1.0 x 2.0 centimeters. Right ovary demonstrates a cystic lesion measuring 2.2 x 1.8 x 1.4 centimeters most likely representing a corpus luteal cyst. IMPRESSION: Single live intrauterine gestation at approximately 7 weeks and 3 days. EDC by US 11/03/2018 Subchorionic fluid collection measures 2.5 x 2.5 x 0.9 centimeters consistent with a subchorionic hemorrhage. This is slightly smaller compared to the prior study Transcribed By: UBC Dictated By: MITCHELL MENENDEZ Electronically Authenticated By: MITCHELL MENENDEZ Signed Date/Time: 03/21/18 0008 - Medical Decision Making Patient treated for STD exposure, BV via wet prep, ultrasound single IUP 7 weeks 3 days small subchorionic hemorrhage , there is some mild dehydration noted on labs sodium 131, K: 3.2 patient treated with normal saline 2 L IV Zofran and Reglan patient not tolerating by mouth intake without nausea vomiting given Rocephin and Zithromax here we DC to home on metronidazole gel Reglan and Benadryl patient will continue to hydrate as directed patient will follow-up with Dr. Marshall in 2 days return to emergency department should symptoms worsen patient verbalizes agreement and understanding with discharge instructions. Critical care attestation.: If time is entered above; I have spent that time in minutes in the direct care of this critically ill patient, excluding procedure time. ED Disposition Clinical Impression: Mild dehydration, Nausea and vomiting during , Bacterial vaginosis, Vaginal discharge Subchorionic hemorrhage Qualifiers: Fetus number: single or unspecified fetus Trimester: first trimester Qualified Code(s): O41.8X10 - Other specified disorders of amniotic fluid and membranes, first trimester, not applicable or unspecified; O46.8X1 - Other antepartum hemorrhage, first trimester Disposition: DC-01 TO HOME OR SELFCARE Is pt being admited?: No Does the pt Need Aspirin: No Condition: Stable Instructions: Bacterial Vaginosis (ED), Dehydration (ED), Acute Nausea and Vomiting (ED) Prescriptions: metroNIDAZOLE 0.75% [Vandazole 0.75% VAGINAL] 1 applicator VG QHS 10 Days #1 tube Acetaminophen [Tylenol] 650 mg PO TID PRN #30 capsule PRN Reason: pain diphenhydrAMINE [Benadryl CAP] 25 mg PO Q8HR PRN #30 capsule PRN Reason: Nausea And Vomiting Metoclopramide [Reglan] 10 mg PO TID PRN #30 tab PRN Reason: Nausea And Vomiting Referrals: JOHANNE MARSHALL MD [Staff Physician] - 3-5 Days Forms: STI Treatment and Prevention, Work/School Release Form(ED) Time of Disposition: 00:39
[2018-03-20] MEDS ORDERED: ALUM-MAG HYDROX-SIMETH 200-200-20MG/5ML PO ONE (22:00)
[2018-03-20] MEDS ORDERED: ROCEPHIN IM ONE (22:00)
[2018-03-20] MEDS ORDERED: ZITHROMAX PO ONE (22:00)
[2018-03-20] MEDS ORDERED: XYLOCAINE 1% MPF 5 mL INFILTRATI ONE (22:00)
--- NOTE | 2018-03-21 00:07 | Ultrasound Report ---
FINAL REPORT PROCEDURE: US OB <= 14 WEEKS FETUS TECHNIQUE: Real-time transabdominal sonography of the uterus, placenta, amniotic fluid, adnexa, and fetus was performed with image documentation. Measurements were obtained to determine age/size. M-mode Doppler was used to document heartbeat. CPT 24705 HISTORY: abd pain COMPARISON: 03/15/2018. FINDINGS: There is a single intrauterine gestation sac with a CR L measurement of 12.5 millimeters correspondin g to a gestational age of 7 weeks and 3 days. Expected date of conception 11/03/2018. Subchorionic fl uid collection is again identified measuring 2.5 x 2.5 x 0.9 centimeters. heart rate is 142 brittney ts per Min. Expected date of conception 11/03/2018. Right ovary measures 3.5 x 2.8 x 2.6 and left ovary measures 2.2 x 1.0 x 2.0 centimeters. Right ovary demonstrates a cystic lesion measuring 2.2 x 1.8 x 1.4 centimeters most likely representing a corpus luteal cyst. IMPRESSION: Single live intrauterine gestation at approximately 7 weeks and 3 days. EDC by US 11/03/2018 Subchorionic fluid collection measures 2.5 x 2.5 x 0.9 centimeters consistent with a subchorionic hem orrhage. This is slightly smaller compared to the prior study
--- NOTE | 2018-03-21 00:08 | Ultrasound Report ---
FINAL REPORT PROCEDURE: US OB TRANSVAGINAL TECHNIQUE: Real-time transvaginal sonography of the uterus, placenta, amniotic fluid, adnexa, and fe tus was performed with image documentation. Measurements were obtained to determine age/size. M -mode Doppler was used to document heartbeat. CPT 52677 HISTORY: abd pain COMPARISON: No prior studies are available for comparison. FINDINGS: There is a single intrauterine gestation sac with a CR L measurement of 12.5 millimeters correspondin g to a gestational age of 7 weeks and 3 days. Expected date of conception 11/03/2018. Subchorionic fl uid collection is again identified measuring 2.5 x 2.5 x 0.9 centimeters. heart rate is 142 brittney ts per Min. Expected date of conception 11/03/2018. Right ovary measures 3.5 x 2.8 x 2.6 and left ovary measures 2.2 x 1.0 x 2.0 centimeters. Right ovary demonstrates a cystic lesion measuring 2.2 x 1.8 x 1.4 centimeters most likely representing a corpus luteal cyst. IMPRESSION: Single live intrauterine gestation at approximately 7 weeks and 3 days. EDC by US 11/03/2018 Subchorionic fluid collection measures 2.5 x 2.5 x 0.9 centimeters consistent with a subchorionic hem orrhage. This is slightly smaller compared to the prior study
[2018-03-21 00:41] LABS: Bacteria,Urine 1+ /HPF (Negative); Bilirubin,Urine NEG (Negative); Blood,Urine NEG (Negative); Color,Urine Amber (Yellow); Mucus,Urine 3+ /HPF
[2018-03-21] MEDS ORDERED: ZOFRAN ODT ONE (01:46)
[2018-03-21 01:47] VITALS: BP 106/75
[2018-03-21] MEDS ORDERED: ZOFRAN ODT PO ONE (01:49)
== END 2018-03-21 01:45 | disposition home or self-care (01) ==
LOC: ED 18:29
DX: O41.8X10 Other specified disorders of amniotic fluid and membranes, first trimester, not applicable or unspecified (principal); O21.9 Vomiting of pregnancy, unspecified; Z3A.01 Less than 8 weeks gestation of pregnancy
CPT/HCPCS: 36415; 76801; 76817; 80053; 81001; 83690; 84702; 85025; 87210; 87591; 96361; 96372; 96374; 96375; 99285; J0696; J1200; J2405; J2765; J7030; Q0162

== ENCOUNTER 2018-04-02 09:32 | Emergency (ER) | payer MEDICAID, OTHER ==
--- NOTE | 2018-04-02 10:56 | Emergency Department Report ---
ED Recheck HPI - General Chief Complaint: Nausea/Vomiting/Diarrhea Stated Complaint: /BLEEDING STOMACH PAIN Time Seen by Provider: 04/02/18 10:10 Source: patient Mode of arrival: Ambulatory Limitations: No Limitations - History of Present Illness Initial Comments: 28 YO AA FEMALE WHO COMES TO ER 5TH TIME WITH SIMILAR COMPLAINTS. PREG W LMP 01/27. CO N/V AND NOW VAG SPOTTING. SHE HAS OB AND INITIALLY TOLD ME SHE HAD SEEN OB. WHEN I ASKED WHO THE MD WAS SHE THEN STATED HE WOULD NOT SEE HER BECAUSE HER MEDICAID IS NOT ACTIVE. SHE APPLIED ON 03/25 AND THEY TOLD HER 10 DAYS BUT SHE HAS NOT TALKED TO A NURSE'S COMPANION. DENIES VAG DC. STATES SPOTTED THIS AM. STATES NAUSEATED BUT ON PHONE DURING EXAM - Related Data Previous Rx's Medication Instructions Recorded Last Taken Type traMADol [Ultram 50 MG tab] 50 mg PO Q6HR PRN #20 tablet 06/11/15 Unknown Rx Acetaminophen 500 mg PO Q8H PRN #30 tablet 10/15/17 Unknown Rx Metoclopramide [Reglan] 10 mg PO TID PRN #60 tab 10/15/17 Unknown Rx 21/Iron Fu/Folic Acid 1 each PO DAILY #30 tablet 10/15/17 Unknown Rx [ Complete Caplet] Ondansetron [Zofran Odt] 4 mg PO Q8HR PRN #9 tab.rapdis 03/15/18 Unknown Rx Promethazine [Phenergan TAB] 25 mg PO Q6HR PRN #20 tab 03/15/18 Unknown Rx metroNIDAZOLE 0.75% [Vandazole 1 applicator VG QHS 10 Days #1 tube 03/20/18 Unknown Rx 0.75% VAGINAL] Acetaminophen [Tylenol] 650 mg PO TID PRN #30 capsule 03/21/18 Unknown Rx Metoclopramide [Reglan] 10 mg PO TID PRN #30 tab 03/21/18 Unknown Rx diphenhydrAMINE [Benadryl CAP] 25 mg PO Q8HR PRN #30 capsule 03/21/18 Unknown Rx Allergies Allergy/AdvReac Type Severity Reaction Status Date / Time No Known Allergies Allergy Verified 04/02/18 09:44 ED Review of Systems ROS: Stated complaint: /BLEEDING STOMACH PAIN Other details as noted in HPI Comment: All other systems reviewed and negative Constitutional: denies: chills Eyes: denies: eye pain ENT: denies: throat pain Respiratory: denies: orthopnea Cardiovascular: denies: palpitations Endocrine: denies: flushing Gastrointestinal: as per HPI, nausea, vomiting. denies: abdominal pain, diarrhea, constipation, hematemesis, melena Genitourinary: as per HPI, other (VAG SPOTTING THIS AM). denies: urgency, dysuria, frequency, hematuria, discharge, abnormal menses, dyspareunia Musculoskeletal: as per HPI. denies: back pain ED Past Medical Hx - Past Medical History Previous Medical History?: No Hx Hypertension: No Hx Congestive Heart Failure: No Hx Diabetes: No Hx Deep Vein Thrombosis: No Hx Renal Disease: No Hx Sickle Cell Disease: No Hx Seizures: No Hx Asthma: No Hx COPD: No Hx HIV: No Additional medical history: Vaginal delivery x 2. A0 - Surgical History Past Surgical History?: No - Social History Smoking Status: Never Smoker Substance Use Type: None - Medications Home Medications: Home Medications Medication Instructions Recorded Confirmed Last Taken Type traMADol [Ultram 50 MG tab] 50 mg PO Q6HR PRN #20 tablet 06/11/15 Unknown Rx Acetaminophen 500 mg PO Q8H PRN #30 tablet 10/15/17 Unknown Rx Metoclopramide [Reglan] 10 mg PO TID PRN #60 tab 10/15/17 Unknown Rx 21/Iron Fu/Folic Acid 1 each PO DAILY #30 tablet 10/15/17 Unknown Rx [ Complete Caplet] Ondansetron [Zofran Odt] 4 mg PO Q8HR PRN #9 tab.rapdis 03/15/18 Unknown Rx Promethazine [Phenergan TAB] 25 mg PO Q6HR PRN #20 tab 03/15/18 Unknown Rx metroNIDAZOLE 0.75% [Vandazole 1 applicator VG QHS 10 Days #1 tube 03/20/18 Unknown Rx 0.75% VAGINAL] Acetaminophen [Tylenol] 650 mg PO TID PRN #30 capsule 03/21/18 Unknown Rx Metoclopramide [Reglan] 10 mg PO TID PRN #30 tab 03/21/18 Unknown Rx diphenhydrAMINE [Benadryl CAP] 25 mg PO Q8HR PRN #30 capsule 03/21/18 Unknown Rx ED Physical Exam - General Limitations: No Limitations General appearance: alert - Head Head exam: Present: atraumatic - Eye Eye exam: Present: PERRL Pupils: Present: normal accommodation - ENT ENT exam: Present: mucous membranes moist - Neck Neck exam: Present: normal inspection - Respiratory Respiratory exam: Present: normal lung sounds bilaterally - Cardiovascular Cardiovascular Exam: Present: regular rate - GI/Abdominal GI/Abdominal exam: Present: soft, normal bowel sounds - Rectal Rectal exam: Present: deferred - Extremities Exam Extremities exam: Present: normal inspection, full ROM - Back Exam Back exam: Present: normal inspection, full ROM - Neurological Exam Neurological exam: Present: alert, oriented X3 - Psychiatric Psychiatric exam: Present: normal affect, normal mood - Skin Skin exam: Present: warm, dry ED Course Vital Signs 04/02/18 04/02/18 09:44 10:07 Temperature 99.3 F Pulse Rate 85 Respiratory 18 16 Rate Blood Pressure 105/66 O2 Sat by Pulse 99 Oximetry ED Recheck MDM - Core Measures Measure Exclusions: not indicated - Medical Decision Making HCG NOTED COMPARED TO PREVIOUS- IT HAS INCREASED SINCE LAST VISIT SHE HAS HX OF SUBCHORIONIC HEM ON LAST US ON 03/20 DISCUSSED WITH PT AND SHE WILL FOLLOW UP WITH OBGYN Critical care attestation.: If time is entered above; I have spent that time in minutes in the direct care of this critically ill patient, excluding procedure time. ED Disposition Clinical Impression: , Vaginal bleeding affecting early Disposition: DC-01 TO HOME OR SELFCARE Is pt being admited?: No Does the pt Need Aspirin: No Condition: Stable Additional Instructions: PELVIC REST FOLLOW UP WITH OBGYN IN THE OFFICE JA CALL YOUR NURSE'S COMPANION SO THEY WILL SEE YOU HCG TODAY [id number] 1-16 HCG [id number] HYDRATE WELL WITH WATER TAKE VITAMIN DAILY Referrals: PATTIE SELF MD [Primary Care Provider] - 3-5 Days TERESA HOWE MD [Staff Physician] - 3-5 Days Time of Disposition: 11:27
[2018-04-02 11:44] VITALS: BP 109/72
== END 2018-04-02 11:44 | disposition home or self-care (01) ==
LOC: ED 09:32
DX: O46.91 Antepartum hemorrhage, unspecified, first trimester (principal); O21.0 Mild hyperemesis gravidarum; Z3A.01 Less than 8 weeks gestation of pregnancy
CPT/HCPCS: 36415; 84702; 99283

== ENCOUNTER 2018-10-25 17:45 | Inpatient (IN) | payer MEDICAID ==
--- NOTE | 2018-10-25 20:52 | History and Physical Report ---
History of Present Illness Date of examination: 10/25/18 Date of admission: 10/25/18 17:47 Chief complaint: Labor History of present illness: Pt is a 28yo BF EDC 11/06/18; EGA 38 2/7 weeks presents to L&D complaining of RUC's q 3-4 mins. She received care with Dr Santos and course has been unremarkable. [facility] records are not available and GBS is unknown. Past History Past Medical History: no pertinent history Past Surgical History: no surgical history Social history: no significant social history, single - Obstetrical History Expected Date of Delivery: 11/06/18 Actual Gestation: 38 Week(s) 2 Day(s) : 3 Medications and Allergies Allergies Allergy/AdvReac Type Severity Reaction Status Date / Time No Known Allergies Allergy Verified 04/02/18 09:44 Home Medications Medication Instructions Recorded Confirmed Last Taken Type Ferrous Sulfate [Feosol] 325 mg PO BID 10/25/18 10/25/18 10/25/18 History Vit-Fe Fumar-FA [ 1 tab PO DAILY 10/25/18 10/25/18 10/25/18 History Vitamin] Review of Systems All systems: negative - Physical Exam Breasts: Positive: deferred Cardiovascular: Regular rate Lungs: Positive: Clear to auscultation Abdomen: Positive: normal appearance Genitourinary (Female): Positive: normal external genitalia Vagina: Positive: normal moisture Uterus: Positive: enlarged Extremities: Positive: normal - Obstetrical FHR: category 1 Uterine Contraction Monitor Mode: External Cervical Dilatation: 4 (per nurse ) Cervical Effacement Percentage: 50 (per nurse) station: -3 Uterine Contraction Pattern: Regular Uterine Tone Measurement Phase: Contraction Uterine Contraction Intensity: Moderate Results All other labs normal. Assessment and Plan - Patient Problems (1) 38 weeks gestation of Onset Date: 10/25/18 Current Visit: Yes Status: Acute Plan to address problem: A: IUP @ 38 2/7 weeks in labor Unknown GBS P: Admit to L&D for expectant vaginal delivery IV Ampicillin
[2018-10-25] MEDS ORDERED: PHENERGAN PO PRN (20:56)
[2018-10-25] MEDS ORDERED: XYLOCAINE 2% INFILTRATI ONE (20:56)
[2018-10-25] MEDS ORDERED: MINERAL OIL PO PRN (20:56)
[2018-10-25] MEDS ORDERED: STADOL IV PRN (20:56)
[2018-10-25] MEDS ORDERED: SUBLIMAZE IV PRN (20:56)
[2018-10-25] MEDS ORDERED: ZOFRAN IV PRN (20:56)
[2018-10-25] MEDS ORDERED: AMPICILLIN/NS 2 GM/100 ML 2 GM/100 ML BAG IV ONE (20:56)
[2018-10-25] MEDS ORDERED: BRETHINE IVP PRN (20:56)
[2018-10-25] MEDS ORDERED: BRETHINE SUB-Q PRN (20:56)
[2018-10-25] MEDS ORDERED: PITOCin/NS 20 UNIT/1000ML DRIP 20 UNITS/1,000 ML BAG IV SCH (21:00)
[2018-10-25] MEDS ORDERED: PITOCin/NS 30 UNIT/500ML 30 UNITS/500 ML BAG IV SCH ×2 (21:00)
[2018-10-25 21:35] LABS: Hematocrit 35.4 % (30.3-42.9); Hemoglobin 11.8 gm/dl (10.1-14.3); Mean Corpuscular HGB Conc 33 % (30-34); Mean Corpuscular Volume 88 fl (79-97); Platelet Count 255 K/mm3 (140-440); Red Blood Count 4.03 M/mm3 (3.65-5.03); Red Cell Distribution Width 12.7 % (13.2-15.2)
[2018-10-25] MEDS: LACTATED RINGERS 1,000 ML IV SCH (22:06)
[2018-10-26] MEDS ORDERED: NARCAN 2 MG/2 ML IV PRN (00:04)
--- NOTE | 2018-10-26 00:08 | Anesthesia Consultation ---
Anesthesia Consult and Med Hx Date of service: 10/26/18 - Airway Anesthetic Teeth Evaluation: Poor ROM Head & Neck: Adequate Mental/Hyoid Distance: Adequate Mallampati Class: Class II Intubation Access Assessment: Probably Good - Pulmonary Exam CTA: Yes - Cardiac Exam Cardiac Exam: RRR - Pre-Operative Health Status ASA Pre-Surgery Classification: ASA2 Proposed Anesthetic Plan: Epidural - Pulmonary Hx Smoking: No Hx Asthma: No COPD: No Hx Pneumonia: No - Cardiovascular System Hx Hypertension: No Hx Coronary Artery Disease: No Hx Heart Attack/AMI: No Hx Angina: No Hx Percutaneous Transluminal Coronary Angioplasty (PTCA): No Hx Cardia Arrhythmia: No Hx Pacemaker: No Hx Internal Defibrillator: No Hx Valvular Heart Disease: No Hx Heart Murmur: No Hx Peripheral Vascular Disease: No - Central Nervous System Hx Neuromuscular Disorder: No Hx Seizures: Yes (migraines) CVA: No Hx Back Pain: No Hx Psychiatric Problems: No - Endocrine Hx Renal Disease: No Hx End Stage Renal Disease: No Hx Cirrhosis: No Hx Liver Disease: No Hx Insulin Dependent Diabetes: No Hx Non-Insulin Dependent Diabetes: No Hx Thyroid Disease: No Hx Hypothyroidism: No Hx Hyperthyroidism: No - Hematic Hx Anemia: Yes Hx Sickle Cell Disease: No - Other Systems Hx Alcohol Use: No Hx Substance Use: No Hx Cancer: No Hx Obesity: No
[2018-10-26] MEDS ORDERED: AMPICILLIN/NS 1 GM/50 ML 1 GM/50 ML BAG IV SCH (00:58)
[2018-10-26] MEDS ORDERED: fentaNYL-BUPIV 2 MCG/ML-0.125% 200 MCG/100 ML BAG EPIDURAL SCH (01:00)
[2018-10-26] MEDS: LACTATED RINGERS 1,000 ML IV SCH (02:00)
--- NOTE | 2018-10-26 08:09 | Progress Note ---
Assessment and Plan - Patient Problems (1) 38 weeks gestation of Onset Date: 10/25/18 Current Visit: Yes Status: Acute Plan to address problem: A: IUP @ 38 3/7 weeks in labor GBS - Negative P: Expectant vaginal delivery Subjective - Subjective Date of service: 10/26/18 Principal diagnosis: IUP @ 38 3/7 weeks in labor Interval history: Pt is a 28yo BF EDC 11/06/18; EGA 38 3/7 weeks presents to L&D complaining of RUC's q 3-4 mins. She received care with Dr Santos and course has been unremarkable. She is currently song q 2-3 mins with epidural in place. GBS is negative. Patient reports: movement normal, contractions, no new complaints, no loss of fluid, no vaginal bleeding Objective - Vital Signs Vital Signs: Vital Signs - 12hr 10/25/18 10/25/18 10/25/18 21:06 22:10 22:58 Pulse Rate 97 H 80 Respiratory 18 Rate Blood Pressure 130/71 108/60 O2 Sat by Pulse Oximetry 10/25/18 10/25/18 10/25/18 23:26 23:39 23:44 Pulse Rate 76 75 98 H Respiratory Rate Blood Pressure 118/71 O2 Sat by Pulse 97 100 Oximetry 10/25/18 10/25/18 10/25/18 23:49 23:54 23:55 Pulse Rate 91 H 90 86 Respiratory Rate Blood Pressure 132/74 123/69 O2 Sat by Pulse 100 100 Oximetry 10/25/18 10/26/18 10/26/18 23:59 00:04 00:09 Pulse Rate 84 80 86 Respiratory Rate Blood Pressure 123/75 126/72 123/71 O2 Sat by Pulse 100 100 100 Oximetry 10/26/18 10/26/18 10/26/18 00:14 00:15 00:19 Pulse Rate 79 71 76 Respiratory Rate Blood Pressure 123/71 121/72 O2 Sat by Pulse 100 100 Oximetry 10/26/18 10/26/18 10/26/18 00:24 00:29 00:34 Pulse Rate 85 78 86 Respiratory Rate Blood Pressure 122/71 O2 Sat by Pulse 100 100 100 Oximetry 10/26/18 10/26/18 10/26/18 00:39 00:44 00:49 Pulse Rate 76 78 84 Respiratory Rate Blood Pressure O2 Sat by Pulse 100 100 100 Oximetry 10/26/18 10/26/18 10/26/18 00:54 00:55 00:59 Pulse Rate 77 76 75 Respiratory Rate Blood Pressure 114/69 O2 Sat by Pulse 100 100 Oximetry 10/26/18 10/26/18 10/26/18 01:04 01:09 01:14 Pulse Rate 78 85 91 H Respiratory Rate Blood Pressure O2 Sat by Pulse 100 100 100 Oximetry 10/26/18 10/26/18 10/26/18 01:19 01:24 01:25 Pulse Rate 78 75 78 Respiratory Rate Blood Pressure 118/76 O2 Sat by Pulse 100 100 Oximetry 10/26/18 10/26/18 10/26/18 01:29 01:34 01:39 Pulse Rate 84 82 83 Respiratory Rate Blood Pressure O2 Sat by Pulse 100 100 100 Oximetry 10/26/18 10/26/18 10/26/18 01:44 01:49 01:54 Pulse Rate 92 H 82 79 Respiratory Rate Blood Pressure O2 Sat by Pulse 100 100 100 Oximetry 10/26/18 10/26/18 10/26/18 01:55 01:59 02:04 Pulse Rate 78 77 81 Respiratory Rate Blood Pressure 117/72 O2 Sat by Pulse 100 100 Oximetry 10/26/18 10/26/18 10/26/18 02:09 02:14 02:19 Pulse Rate 82 75 86 Respiratory Rate Blood Pressure O2 Sat by Pulse 100 100 100 Oximetry 10/26/18 10/26/18 10/26/18 02:24 02:25 02:29 Pulse Rate 78 77 79 Respiratory Rate Blood Pressure 118/73 O2 Sat by Pulse 100 100 Oximetry 10/26/18 10/26/18 10/26/18 02:34 02:39 02:44 Pulse Rate 89 78 78 Respiratory Rate Blood Pressure O2 Sat by Pulse 100 99 99 Oximetry 10/26/18 10/26/18 10/26/18 02:49 02:54 02:55 Pulse Rate 82 80 80 Respiratory Rate Blood Pressure 123/76 O2 Sat by Pulse 100 99 Oximetry 10/26/18 10/26/18 10/26/18 02:59 03:04 03:09 Pulse Rate 73 83 90 Respiratory Rate Blood Pressure O2 Sat by Pulse 100 100 100 Oximetry 08/24/19 08/24/19 08/24/19 03:14 03:19 03:24 Pulse Rate 72 87 75 Respiratory Rate Blood Pressure O2 Sat by Pulse 100 99 100 Oximetry 10/26/18 10/26/18 10/26/18 03:25 03:29 03:34 Pulse Rate 75 74 80 Respiratory Rate Blood Pressure 116/72 O2 Sat by Pulse 100 99 Oximetry 10/26/18 10/26/18 10/26/18 03:39 03:44 03:49 Pulse Rate 73 76 75 Respiratory Rate Blood Pressure O2 Sat by Pulse 98 100 100 Oximetry 10/26/18 10/26/18 10/26/18 03:54 03:55 03:59 Pulse Rate 77 76 75 Respiratory Rate Blood Pressure 128/60 O2 Sat by Pulse 100 100 Oximetry 10/26/18 10/26/18 10/26/18 04:04 04:09 04:14 Pulse Rate 83 87 79 Respiratory Rate Blood Pressure O2 Sat by Pulse 100 100 100 Oximetry 10/26/18 10/26/18 10/26/18 04:19 04:24 04:25 Pulse Rate 76 87 69 Respiratory Rate Blood Pressure 130/78 O2 Sat by Pulse 100 100 Oximetry 10/26/18 10/26/18 10/26/18 04:29 04:34 04:39 Pulse Rate 101 H 92 H 90 Respiratory Rate Blood Pressure O2 Sat by Pulse 100 100 99 Oximetry 10/26/18 10/26/18 10/26/18 04:44 04:49 04:54 Pulse Rate 86 88 85 Respiratory Rate Blood Pressure O2 Sat by Pulse 98 98 98 Oximetry 10/26/18 10/26/18 10/26/18 04:56 04:59 05:04 Pulse Rate 75 75 76 Respiratory Rate Blood Pressure 115/72 O2 Sat by Pulse 98 99 Oximetry 10/26/18 10/26/18 10/26/18 05:09 05:14 05:19 Pulse Rate 83 86 81 Respiratory Rate Blood Pressure O2 Sat by Pulse 97 98 99 Oximetry 10/26/18 10/26/18 10/26/18 05:24 05:25 05:29 Pulse Rate 73 73 74 Respiratory Rate Blood Pressure 117/67 O2 Sat by Pulse 98 99 Oximetry 10/26/18 10/26/18 10/26/18 05:34 05:39 05:44 Pulse Rate 78 80 85 Respiratory Rate Blood Pressure O2 Sat by Pulse 97 99 99 Oximetry 10/26/18 10/26/18 10/26/18 05:49 05:54 05:56 Pulse Rate 91 H 77 72 Respiratory Rate Blood Pressure 115/70 O2 Sat by Pulse 99 100 Oximetry 10/26/18 10/26/18 10/26/18 05:59 06:04 06:09 Pulse Rate 94 H 91 H 82 Respiratory Rate Blood Pressure O2 Sat by Pulse 100 99 100 Oximetry 10/26/18 10/26/18 10/26/18 06:14 06:19 06:24 Pulse Rate 73 71 73 Respiratory Rate Blood Pressure O2 Sat by Pulse 99 100 99 Oximetry 10/26/18 10/26/18 10/26/18 06:25 06:29 06:34 Pulse Rate 69 73 84 Respiratory Rate Blood Pressure 113/70 O2 Sat by Pulse 99 100 Oximetry 10/26/18 10/26/18 10/26/18 06:39 06:44 06:49 Pulse Rate 73 72 93 H Respiratory Rate Blood Pressure O2 Sat by Pulse 99 100 99 Oximetry 10/26/18 10/26/18 10/26/18 06:54 06:55 06:59 Pulse Rate 67 70 86 Respiratory Rate Blood Pressure 117/66 O2 Sat by Pulse 98 100 Oximetry 10/26/18 10/26/18 10/26/18 07:04 07:09 07:14 Pulse Rate 73 75 72 Respiratory Rate Blood Pressure O2 Sat by Pulse 97 97 99 Oximetry 10/26/18 10/26/18 10/26/18 07:19 07:24 07:27 Pulse Rate 89 80 93 H Respiratory Rate Blood Pressure 125/75 O2 Sat by Pulse 100 100 Oximetry 10/26/18 10/26/18 10/26/18 07:29 07:34 07:39 Pulse Rate 81 88 93 H Respiratory Rate Blood Pressure O2 Sat by Pulse 100 100 100 Oximetry 10/26/18 10/26/18 10/26/18 07:44 07:49 07:54 Pulse Rate 88 85 105 H Respiratory Rate Blood Pressure O2 Sat by Pulse 100 100 100 Oximetry 10/26/18 10/26/18 10/26/18 07:57 07:59 08:04 Pulse Rate 88 100 H 98 H Respiratory Rate Blood Pressure 131/61 O2 Sat by Pulse 100 100 Oximetry - Exam Abdomen: Present: normal appearance, soft Uterus: Present: normal FHR: category 1 Uterine Contraction Monitor Mode: External Cervical Dilatation: 9 Cervical Effacement Percentage: 100 station: -2 Uterine Contraction Pattern: Regular Uterine Tone Measurement Phase: Contraction Uterine Contraction Intensity: Strong/Firm - Labs Labs: Abnormal Labs 10/25/18 Unknown WBC 12.7 H RDW 12.7 L Laboratory Results - last 24 hr 10/25/18 10/25/18 10/25/18 20:56 20:56 20:56 WBC RBC Hgb Hct MCV MCH MCHC RDW Plt Count Hep Bs Antigen Non-reactive HIV 1&2 Antibody Rapid Non react HIV P24 Antigen Non react Rubella IgG Antibody Immune Blood Type Antibody Screen 10/25/18 10/25/18 Unknown Unknown WBC 12.7 H RBC 4.03 Hgb 11.8 Hct 35.4 MCV 88 MCH 29 MCHC 33 RDW 12.7 L Plt Count 255 Hep Bs Antigen HIV 1&2 Antibody Rapid HIV P24 Antigen Rubella IgG Antibody Blood Type B POSITIVE Antibody Screen Negative
--- NOTE | 2018-10-26 08:31 | Procedure Note ---
OB Delivery Note - Delivery Date of Delivery: 10/26/18 Surgeon: JOHANNE GUERRA Estimated blood loss: other (250ml) - Vaginal Delivery presentation: vertex Delivery position: OA Intrapartum events: meconium Delivery induction: none Delivery augmentation: rupture of membranes, pitocin Delivery monitor: external FHT, external uterine Route of delivery: Delivery placenta: spontaneous Delivery cord: 3 umbilical vessels Episiotomy: none Delivery laceration: none Anesthesia: epidural Delivery comments: delivered OA and placed on Mom's chest for [id number] bonding and delayed cord clamping, cut by Dad - Infant A at 1 minute: 8 at 5 minutes: 9 Infant Gender: Female ([id number])
[2018-10-26] MEDS ORDERED: PHENERGAN PR PRN (13:16)
[2018-10-26] MEDS ORDERED: ZOFRAN IV PRN (13:16)
[2018-10-26] MEDS ORDERED: BENADRYL PO PRN (13:16)
[2018-10-26] MEDS ORDERED: PHENERGAN PO PRN (13:16)
[2018-10-26] MEDS ORDERED: MILK OF MAGNESIA PO PRN (13:16)
[2018-10-26] MEDS ORDERED: LANSINOH TP PRN (13:16)
[2018-10-26] MEDS ORDERED: TUCKS PAD TP PRN (13:16)
[2018-10-26] MEDS ORDERED: DULCOLAX PR PRN (13:16)
[2018-10-26] MEDS ORDERED: TYLENOL PO PRN (13:16)
[2018-10-26] MEDS ORDERED: SODIUM CHLORIDE FLUSH SYRINGE 10 ML IV NR (14:00)
[2018-10-26] MEDS: IBUPROFEN PO SCH ×2 (14:15→22:56)
[2018-10-26 20:35] LABS: Hematocrit 31.5 % (30.3-42.9); Hemoglobin 10.7 gm/dl (10.1-14.3)
[2018-10-27] MEDS: IBUPROFEN PO SCH ×2 (05:30→12:48)
--- NOTE | 2018-10-27 10:32 | Progress Note ---
Assessment and Plan - Patient Problems (1) 38 weeks gestation of Onset Date: 10/25/18 Current Visit: Yes Status: Resolved (2) Status post normal vaginal delivery Onset Date: 10/27/18 Current Visit: No Status: Resolved Plan to address problem: A: S/P - PPD #1 Doing well Asymptomatic anemia - stable P: May go home today. Subjective - Subjective Date of service: 10/27/18 Principal diagnosis: s/p - PPD #1 Interval history: Pt is feeling well without complaints. Bleeding improved. Patient reports: appetite normal, voiding normally, pain well controlled, flatus, ambulating normally, no dizzy ambulation, no nauseated : doing well, bottle feeding Objective - Vital Signs Latest vital signs: Vital Signs Temp Pulse Resp BP BP Pulse Ox 10/27/18 09:04 98.6 F 88 20 133/81 100 10/26/18 23:39 98.2 F 93 H 20 124/79 96 10/26/18 15:35 98.2 F 84 18 106/63 100 10/26/18 12:00 98.3 F 95 H 20 107/47 99 10/26/18 11:16 88 132/63 10/26/18 10:45 87 119/79 Intake and Output 10/26/18 10/27/18 10/27/18 22:59 06:59 14:59 Intake Total 240 120 Balance 240 120 Intake: Oral 240 120 Other: Total, Intake Amount 240 120 # Voids Void 1 1 - Exam Breasts: Present: deferred Abdomen: Present: normal appearance, soft Uterus: Present: normal, firm, fundal height below umbilicus Extremities: Present: normal - Labs Labs: Laboratory Tests 10/25/18 10/25/18 10/25/18 20:56 20:56 20:56 WBC RBC Hgb Hct MCV MCH MCHC RDW Plt Count RPR Hep Bs Antigen Non-reactive HIV 1&2 Antibody Rapid Non react HIV P24 Antigen Non react Rubella IgG Antibody Immune Blood Type Antibody Screen 10/25/18 10/25/18 10/25/18 Unknown 23:59 Unknown WBC 12.7 H RBC 4.03 Hgb 11.8 Hct 35.4 MCV 88 MCH 29 MCHC 33 RDW 12.7 L Plt Count 255 RPR Nonreactive Hep Bs Antigen HIV 1&2 Antibody Rapid HIV P24 Antigen Rubella IgG Antibody Blood Type B POSITIVE Antibody Screen Negative 10/26/18 20:11 WBC RBC Hgb 10.7 Hct 31.5 MCV MCH MCHC RDW Plt Count RPR Hep Bs Antigen HIV 1&2 Antibody Rapid HIV P24 Antigen Rubella IgG Antibody Blood Type Antibody Screen
--- NOTE | 2018-10-27 11:21 | Discharge Summary ---
Providers - Providers Date of Admission: 10/25/18 17:47 Date of discharge: 10/27/18 Attending physician: JOHANNE GUERRA Primary care physician: JOHANNE GUERRA Hospitalization Reason for admission: active labor, IUP at term Delivery: Episiotomy: none Laceration: none Other procedures: none Discharge diagnosis: IUP at term delivered baby: female Hospital course: Pt is a 28yo BF EDC 11/06/18; EGA 38 2/7 weeks who presented to L&D complaining of RUC's q 3-4 mins. She received care with Dr Santos and course has been unremarkable. records were available and GBS was negative. She had an uncomplicated and an uneventful course. She was therefore discharged to home on PPD #1 in stable condition. Condition at discharge: Good Disposition: DC-01 TO HOME OR SELFCARE - Discharge Diagnoses (1) 38 weeks gestation of Status: Resolved (2) Status post normal vaginal delivery Status: Resolved Plan - Discharge Medications Prescriptions: Ferrous Sulfate [Feosol 325 MG tab] 325 mg PO BID #60 tablet Ibuprofen [Motrin 600 MG tab] 600 mg PO Q6H #30 tablet Vit-Fe Fumar-FA [ Vitamin] 1 tab PO DAILY #30 tablet - Provider Discharge Summary Activity: routine, no sex for 6 weeks, no heavy lifting 4 weeks, no strenuous exercise Diet: routine Instructions: routine Additional instructions: [] Smoking cessation referral if applicable(refer to patient education folder for contact #) [] Refer to [facility]'s [facility] Booklet Call your doctor immediately for: * Fever > 100.5 * Heavy vaginal bleeding ( >1 pad per hour) * Severe persistent headache * Shortness of breath * Reddened, hot, painful area to leg or breast * Drainage or odor from incision. * Keep incision clean and dry at all times and follow doctor's instructions regarding bathing/showering - Follow up plan Follow up: JOHANNE GUERRA MD [Primary Care Provider] - 6 Weeks
[2018-10-27 17:09] VITALS: BP 111/74
== END 2018-10-27 17:15 | disposition home or self-care (01) | DRG 775 ==
LOC: TRG 17:45 → LD 17:46 → TRG 17:47 → LD 17:47 → OB 10-26 11:55
PROVIDERS: ADMIT Obstetrics & Gynecology; ATTEND Obstetrics & Gynecology
PROC: 10E0XZZ Delivery of Products of Conception, External Approach (ICD-10-PCS; principal; 2018-10-26)
PROC: 3E0R3BZ Introduction of Anesthetic Agent into Spinal Canal, Percutaneous Approach (ICD-10-PCS; 2018-10-26)
PROC: 00HU33Z Insertion of Infusion Device into Spinal Canal, Percutaneous Approach (ICD-10-PCS; 2018-10-26)
DX: O99.354 Diseases of the nervous system complicating childbirth (principal); O77.0 Labor and delivery complicated by meconium in amniotic fluid; Z3A.38 38 weeks gestation of pregnancy; Z37.0 Single live birth; O90.81 Anemia of the puerperium; D64.9 Anemia, unspecified
CPT/HCPCS: 36415; 85014; 85018; 85027; 86592; 86706; 86762; 86850; 86900; 86901; 87806; G0378; A6250; J0290; J0595; J2590; J7120